=== PATIENT | male | born 1960 | race African-American/Black ===

== ENCOUNTER 2016-08-11 22:04 | Inpatient (IN) | payer MEDICAID, OTHER ==
[~2016-08-11] VITALS: Ht 180.3 cm; Wt 94.8 kg
[2016-08-11 22:41] LABS: Basophils # (auto) 0 uL; Basophils % (auto) 0.6 % (0.0-2.0); CONDITION Y; Eosinophils # (auto) 0.1 uL; Eosinophils % (auto) 1.6 % (0.0-7.0); Hematocrit 37.6 % (41.0-53.0); Hemoglobin 12.9 g/dL (13.5-17.5); Lymphocytes # (auto) 2.6 uL; Lymphocytes % (auto) 49.8 % (10.0-50.0); Mean Corpuscular Hemoglobin 32.5 pg (28.0-32.0); Mean Corpuscular Hgb Conc. 34.4 g/dL (32.0-36.0); Mean Corpuscular Volume 94.3 fL (80.0-100.0); Mean Platelet Volume 12.6 fL (7.4-10.4); Monocytes # (auto) 0.5 uL; Monocytes % (auto) 10.1 % (0.0-12.0); Neutrophils % (auto) 37.9 % (37.0-80.0); Platelet Count (auto) 165 10^3/uL (140-450); Red Cell Distribution Width 13.9 % (11.6-16.0); White Blood Cell 5.3 10^3/uL (4.4-10.8)
[2016-08-11] MEDS ORDERED: ONDANSETRON HCL 4 MG/2 ML VIAL IV ONE (22:45)
[2016-08-11] MEDS ORDERED: MORPHINE SULFATE 4 MG/ML SYRG IV ONE (22:45)
[2016-08-11] MEDS ORDERED: ASPirin 81 mg TAB PO ONE (22:45)
[2016-08-11 23:00] LABS: INR 0.98 (0.9-1.15); Partial Thromboplastin Time 25.6 sec (22.64-33.71); Prothrombin Time 10.7 sec (9.37-12.3)
[2016-08-11 23:06] LABS: Albumin 3.6 g/dL (3.4-5.0); Anion Gap 15 (5-15); Aspartate Aminotransferase 16 U/L (15-37); BUN/Creatinine Ratio 17.9; Blood Urea Nitrogen 35 mg/dL (7-18); Calcium 8.2 mg/dL (8.5-10.1); Carbon Dioxide 21 mmol/L (21-32); Chloride 102 mmol/L (98-107); GFR African American 46 mL/min; GFR Non-African American 38 mL/min; Glucose 397 mg/dL (74-106); Magnesium 2.2 mg/dL (1.6-2.6); Potassium 3.9 mmol/L (3.5-5.1); Sodium 138 mmol/L (136-145)
[2016-08-11 23:11] LABS: Alkaline Phosphatase 104 U/L (45-117); Bilirubin, Total 0.6 mg/dL (0.2-1.0); Total Protein 8.1 g/dL (6.4-8.2)
[2016-08-11 23:16] LABS: B-Type Natriuretic Peptide 8.6 pg/mL (0-100)
[2016-08-11 23:23] LABS: Temperature: 22.9 C (20.0-25.0)
[2016-08-12] MEDS ORDERED: NITROGLYCERIN 0.4 MG SL TAB SL PRN (00:30)
[2016-08-12] MEDS ORDERED: DEXTROSE (50%) 50ML SYRG IV PRN (00:30)
[2016-08-12] MEDS ORDERED: LACTULOSE 20Gm/30ML SOLN PO PRN (00:30)
[2016-08-12] MEDS: SODIUM CHLORIDE 0.9% 1,000 ML IV SCH ×4 (01:29→22:19)
[2016-08-12 02:10] VITALS: BP 157/98
[2016-08-12] MEDS ORDERED: METO25TA62 PO (03:54)
[2016-08-12] MEDS ORDERED: CARI-277 PO (03:54)
[2016-08-12] MEDS ORDERED: ASPI81CH43 PO (03:54)
[2016-08-12] MEDS ORDERED: LISI-275 PO (03:54)
[2016-08-12] MEDS ORDERED: ATOR20TA PO (03:54)
[2016-08-12] MEDS ORDERED: HYDR-4663 PO (03:54)
[2016-08-12] MEDS ORDERED: GABA-497 PO (03:54)
[2016-08-12] MEDS ORDERED: METF-370 PO (03:54)
[2016-08-12 05:11] VITALS: BP 131/72
[2016-08-12] MEDS: LEVOTHYROXINE SODIUM 112 MCG TAB PO SCH (06:22)
[2016-08-12] MEDS: ACCU-CHEK COMFORT CURVE STRIP VI SCH ×4 (06:22→22:19)
[2016-08-12] MEDS: InsuLIN REG 1unit/0.01ml Soln (100units/ml) SC SCH ×4 (06:22→22:19)
[2016-08-12 08:18] VITALS: BP 153/99
[2016-08-12] MEDS: MORPHINE SULF INJ 2 MG/ML SYRINGE 1ML IV PRN ×2 (08:22→14:51)
[2016-08-12] MEDS ORDERED: ASPirin 81 mg TAB PO SCH (10:00)
[2016-08-12] MEDS ORDERED: METOPROLOL TARTRATE 25 MG TAB PO SCH (10:00)
[2016-08-12] MEDS ORDERED: NITROGLYCERIN 0.4 MG SL TAB SL ONE (10:00)
[2016-08-12] MEDS ORDERED: ENALAPRIL MALEATE 10 MG TAB PO SCH (10:00)
[2016-08-12] MEDS: NITROGLYCERIN 0.2MG/HR TOPICAL PATCH TD SCH (11:07)
[2016-08-12] MEDS: ENOXAPARIN SOD 40 MG/0.4 ML SYRINGE SC SCH (11:08)
[2016-08-12] MEDS: PANTOPRAZOLE SODIUM 40 MG/10 ML VIAL IV SCH (11:08)
[2016-08-12 12:03] VITALS: BP 150/90
[2016-08-12] MEDS: GABAPENTIN 300 MG CAP PO SCH ×2 (14:51→22:18)
[2016-08-12 16:35] VITALS: BP 127/70
[2016-08-12] MEDS: metFORMIN HYDROCHLORIDE 500 MG TAB PO SCH (17:38)
[2016-08-12 21:45] VITALS: BP 120/74
[2016-08-12] MEDS ORDERED: ATORVASTATIN 20 MG TAB PO SCH (22:00)
[2016-08-12] MEDS: ATORVASTATIN 20 MG TAB PO SCH (22:18)
[2016-08-13] MEDS: MORPHINE SULF INJ 2 MG/ML SYRINGE 1ML IV PRN ×2 (03:15→20:40)
[2016-08-13 04:37] VITALS: BP 143/71
[2016-08-13] MEDS: metFORMIN HYDROCHLORIDE 500 MG TAB PO SCH ×2 (06:17→18:11)
[2016-08-13] MEDS: SODIUM CHLORIDE 0.9% 1,000 ML IV SCH ×3 (06:18→23:59)
[2016-08-13] MEDS: LEVOTHYROXINE SODIUM 112 MCG TAB PO SCH (06:18)
[2016-08-13] MEDS: GABAPENTIN 300 MG CAP PO SCH ×3 (06:18→22:36)
[2016-08-13] MEDS: InsuLIN REG 1unit/0.01ml Soln (100units/ml) SC SCH ×4 (06:18→23:58)
[2016-08-13] MEDS: ACCU-CHEK COMFORT CURVE STRIP VI SCH ×4 (06:18→23:58)
[2016-08-13 06:54] LABS: Basophils # (auto) 0 uL; Basophils % (auto) 0.5 % (0.0-2.0); CONDITION Y; Eosinophils # (auto) 0.1 uL; Eosinophils % (auto) 2.3 % (0.0-7.0); Hematocrit 31.2 % (41.0-53.0); Hemoglobin 10.8 g/dL (13.5-17.5); Lymphocytes # (auto) 1.6 uL; Mean Corpuscular Hemoglobin 32.8 pg (28.0-32.0); Mean Corpuscular Hgb Conc. 34.7 g/dL (32.0-36.0); Mean Corpuscular Volume 94.6 fL (80.0-100.0); Mean Platelet Volume 12.3 fL (7.4-10.4); Monocytes # (auto) 0.3 uL; Monocytes % (auto) 7.9 % (0.0-12.0); Neutrophils # (auto) 2.1 uL; Neutrophils % (auto) 51.3 % (37.0-80.0); Platelet Count (auto) 118 10^3/uL (140-450); Red Cell Distribution Width 13.8 % (11.6-16.0); SUSPECT SEE PRINTOUT; White Blood Cell 4.2 10^3/uL (4.4-10.8)
[2016-08-13 07:25] LABS: Albumin 2.6 g/dL (3.4-5.0); BUN/Creatinine Ratio 22.6; Bilirubin, Total 0.5 mg/dL (0.2-1.0); Calcium 7.5 mg/dL (8.5-10.1); Potassium 4.6 mmol/L (3.5-5.1)
[2016-08-13] MEDS ORDERED: ADENOSINE 77 MG in GIVE UN-DILUTED 0 ML IV ONE (08:30)
[2016-08-13 09:00] VITALS: BP 111/64
[2016-08-13] MEDS: ASPirin 81 mg TAB PO SCH (10:00)
[2016-08-13] MEDS: ENOXAPARIN SOD 40 MG/0.4 ML SYRINGE SC SCH (10:00)
[2016-08-13] MEDS: NITROGLYCERIN 0.2MG/HR TOPICAL PATCH TD SCH (10:00)
[2016-08-13] MEDS: PANTOPRAZOLE SODIUM 40 MG/10 ML VIAL IV SCH (10:00)
[2016-08-13 13:00] VITALS: BP 117/74
[2016-08-13] MEDS: LISINOPRIL 5 MG TAB PO SCH (13:34)
[2016-08-13] MEDS: METOPROLOL SUCCINATE XL 50 MG TAB PO SCH (13:34)
[2016-08-13 16:39] VITALS: BP 155/87
[2016-08-13 20:00] VITALS: BP 150/91
[2016-08-13 22:00] VITALS: BP 150/91
[2016-08-13] MEDS: HYDROcodone-ACET 5/325MG TAB PO PRN (22:36)
[2016-08-13] MEDS: ATORVASTATIN 20 MG TAB PO SCH (22:36)
[2016-08-14 05:00] VITALS: BP 111/65
[2016-08-14] MEDS: ACCU-CHEK COMFORT CURVE STRIP VI SCH ×3 (06:00→17:25)
[2016-08-14] MEDS: metFORMIN HYDROCHLORIDE 500 MG TAB PO SCH ×2 (06:00→17:25)
[2016-08-14] MEDS: GABAPENTIN 300 MG CAP PO SCH ×3 (06:42→21:56)
[2016-08-14] MEDS: LEVOTHYROXINE SODIUM 112 MCG TAB PO SCH (06:42)
[2016-08-14] MEDS: SODIUM CHLORIDE 0.9% 1,000 ML IV SCH ×2 (06:43→16:56)
[2016-08-14] MEDS: InsuLIN REG 1unit/0.01ml Soln (100units/ml) SC SCH ×3 (06:43→17:25)
[2016-08-14] MEDS: MORPHINE SULF INJ 2 MG/ML SYRINGE 1ML IV PRN ×3 (06:46→20:20)
[2016-08-14 08:00] VITALS: BP 145/85
[2016-08-14 08:25] VITALS: BP 161/99
[2016-08-14] MEDS: ASPirin 81 mg TAB PO SCH (09:12)
[2016-08-14] MEDS: PANTOPRAZOLE SODIUM 40 MG/10 ML VIAL IV SCH (09:12)
[2016-08-14] MEDS: NITROGLYCERIN 0.2MG/HR TOPICAL PATCH TD SCH (09:13)
[2016-08-14] MEDS: METOPROLOL SUCCINATE XL 50 MG TAB PO SCH (09:13)
[2016-08-14] MEDS: ENOXAPARIN SOD 40 MG/0.4 ML SYRINGE SC SCH (09:13)
[2016-08-14] MEDS: LISINOPRIL 5 MG TAB PO SCH (09:13)
[2016-08-14 12:55] VITALS: BP 168/77
[2016-08-14 14:18] LABS: CONDITION Y; DEFINITIVE SEE PRINTOUT; Hematocrit 32.9 % (41.0-53.0); Hemoglobin 11.3 g/dL (13.5-17.5); Mean Corpuscular Hemoglobin 32.6 pg (28.0-32.0); Mean Corpuscular Hgb Conc. 34.5 g/dL (32.0-36.0); Mean Corpuscular Volume 94.7 fL (80.0-100.0); Platelet Count (auto) 129 10^3/uL (140-450); Red Cell Distribution Width 13.7 % (11.6-16.0); SUSPECT SEE PRINTOUT; White Blood Cell 3.1 10^3/uL (4.4-10.8)
[2016-08-14 14:36] LABS: Urine RBC None Seen /hpf (0 - 3)
[2016-08-14 14:36] LABS: Metamyelocytes % 0; Myelocytes % 0; Promyelocytes % 0; Reactive Lymphocytes 0
[2016-08-14 14:55] LABS: Urine Bilirubin Negative (Negative); Urine Blood Negative /uL (Negative); Urine Color Yellow (Yellow); Urine Ketone Negative (Negative); Urine Nitrite Negative (Negative); Urine Squamous Epithelial Cell FEW /hpf (<5); Urine Urobilinogen Normal (Negative); Urine pH 5.5 (5.0-8.0)
[2016-08-14 14:59] LABS: Urine Glucose 2+ mg/dL (Normal)
[2016-08-14 20:46] LABS: Anisocytosis Slight; Large Platelets FEW; Platelet Estimate Decreased
[2016-08-14] MEDS: ATORVASTATIN 20 MG TAB PO SCH (21:55)
[2016-08-14 22:00] VITALS: BP 147/66
[2016-08-14] MEDS: HYDROcodone-ACET 5/325MG TAB PO PRN (23:30)
[2016-08-15] MEDS: InsuLIN REG 1unit/0.01ml Soln (100units/ml) SC SCH ×4 (00:05→11:10)
[2016-08-15] MEDS: ACCU-CHEK COMFORT CURVE STRIP VI SCH ×3 (00:05→11:10)
[2016-08-15] MEDS: SODIUM CHLORIDE 0.9% 1,000 ML IV SCH ×2 (00:08→08:28)
[2016-08-15 05:00] VITALS: BP 137/81
[2016-08-15] MEDS: GABAPENTIN 300 MG CAP PO SCH ×2 (05:53→07:30)
[2016-08-15] MEDS: metFORMIN HYDROCHLORIDE 500 MG TAB PO SCH (05:54)
[2016-08-15] MEDS: LEVOTHYROXINE SODIUM 112 MCG TAB PO SCH (06:39)
[2016-08-15] MEDS: MORPHINE SULF INJ 2 MG/ML SYRINGE 1ML IV PRN (07:31)
[2016-08-15 09:00] VITALS: BP 159/85
[2016-08-15] MEDS: ASPirin 81 mg TAB PO SCH (09:26)
[2016-08-15] MEDS: PANTOPRAZOLE SODIUM 40 MG/10 ML VIAL IV SCH (09:26)
[2016-08-15] MEDS: METOPROLOL SUCCINATE XL 50 MG TAB PO SCH (09:26)
[2016-08-15] MEDS: NITROGLYCERIN 0.2MG/HR TOPICAL PATCH TD SCH (09:27)
[2016-08-15] MEDS: ENOXAPARIN SOD 40 MG/0.4 ML SYRINGE SC SCH (09:27)
[2016-08-15] MEDS: LISINOPRIL 5 MG TAB PO SCH (09:27)
[2016-08-15 12:42] VITALS: BP 146/83
[2016-08-15 13:30] VITALS: BP 146/83
== END 2016-08-15 16:03 | disposition home or self-care (01) | DRG 198 ==
LOC: ER 22:23 → TELE 22:24 → TELE-WESTW 08-12 02:06
PROVIDERS: ADMIT Family Medicine; ATTEND Nurse Practitioner Acute Care
DX: I25.10 Atherosclerotic heart disease of native coronary artery without angina pectoris (principal); E11.22 Type 2 diabetes mellitus with diabetic chronic kidney disease; N18.3 Chronic kidney disease, stage 3 (moderate); I12.9 Hypertensive chronic kidney disease with stage 1 through stage 4 chronic kidney disease, or unspecified chronic kidney disease; E03.9 Hypothyroidism, unspecified; E78.5 Hyperlipidemia, unspecified; E11.65 Type 2 diabetes mellitus with hyperglycemia; E78.00 Pure hypercholesterolemia, unspecified; F12.90 Cannabis use, unspecified, uncomplicated; F15.90 Other stimulant use, unspecified, uncomplicated; F17.210 Nicotine dependence, cigarettes, uncomplicated; G89.4 Chronic pain syndrome; Z74.01 Bed confinement status; Z82.49 Family history of ischemic heart disease and other diseases of the circulatory system; Z91.19 Patient's noncompliance with other medical treatment and regimen; Z95.5 Presence of coronary angioplasty implant and graft; G89.29 Other chronic pain; I25.2 Old myocardial infarction; Z71.9 Counseling, unspecified; Z53.20 Procedure and treatment not carried out because of patient's decision for unspecified reasons
CPT/HCPCS: 36415; 71010; 78452; 80053; 80061; 80307; 81001; 82550; 82962; 83036; 83735; 83874; 83880; 84443; 84484; 85007; 85025; 85027; 85610; 85730; 93005; 93017; 93306; 96374; 96375; C9113; J0153; J1815; J2405

== ENCOUNTER 2016-08-15 17:02 | Emergency (ER) | payer MEDICAID ==
[~2016-08-15] VITALS: Ht 180.3 cm; Wt 86.2 kg
[~2016-08-15 17:02] MED LIST: ASPI81CH43 PO; ATOR20TA PO; CARI-277 PO; GABA-497 PO; HYDR-4663 PO; LISI-275 PO; METF-370 PO; METO25TA62 PO
[2016-08-15 17:11] VITALS: BP 144/99
[2016-08-15 17:46] LABS: Basophils # (auto) 0 uL; Basophils % (auto) 0.4 % (0.0-2.0); CONDITION Y; Eosinophils # (auto) 0.1 uL; Eosinophils % (auto) 1.5 % (0.0-7.0); Hematocrit 35.2 % (41.0-53.0); Hemoglobin 12.4 g/dL (13.5-17.5); Lymphocytes # (auto) 1.9 uL; Lymphocytes % (auto) 36.4 % (10.0-50.0); Mean Corpuscular Hgb Conc. 35.2 g/dL (32.0-36.0); Mean Corpuscular Volume 93.7 fL (80.0-100.0); Mean Platelet Volume 12.4 fL (7.4-10.4); Monocytes # (auto) 0.4 uL; Monocytes % (auto) 6.9 % (0.0-12.0); Neutrophils # (auto) 2.9 uL; Neutrophils % (auto) 54.8 % (37.0-80.0); Platelet Count (auto) 150 10^3/uL (140-450); Red Cell Distribution Width 13.4 % (11.6-16.0); SUSPECT SEE PRINTOUT; White Blood Cell 5.3 10^3/uL (4.4-10.8)
[2016-08-15 18:14] LABS: Albumin 3.1 g/dL (3.4-5.0); BUN/Creatinine Ratio 16.5; Bilirubin, Total 0.4 mg/dL (0.2-1.0); Calcium 8.3 mg/dL (8.5-10.1); Total Protein 7.2 g/dL (6.4-8.2)
== END 2016-08-16 01:45 | disposition left against medical advice (07) ==
LOC: ER 17:05
DX: R07.9 Chest pain, unspecified (principal); Z53.21 Procedure and treatment not carried out due to patient leaving prior to being seen by health care provider
CPT/HCPCS: 36415; 80053; 84484; 85025; 93005